=== PATIENT | female | born 1970 | race Two or more races ===

== ENCOUNTER 2017-04-30 20:21 | Emergency (ER) | payer MEDICAID ==
[~2017-04-30] VITALS: Ht 162.6 cm; Wt 60.0 kg
[2017-04-30 21:12] VITALS: BP 100/62
[2017-04-30] MEDS ORDERED: SODIUM CHLORIDE 0.9% 1,000 ML IV ONE (23:05)
[2017-04-30] MEDS ORDERED: ONDANSETRON HCL 4MG/2ML VIAL IV STA (23:05)
[2017-04-30] MEDS ORDERED: MORPHINE SULFATE 4 MG/ML CPJ (NOT FOR IM USE) IV STA (23:05)
== END 2017-04-30 23:55 | disposition left against medical advice (07) ==
LOC: ER 20:27
DX: R10.84 Generalized abdominal pain (principal); R10.32 Left lower quadrant pain; F17.200 Nicotine dependence, unspecified, uncomplicated
CPT/HCPCS: 99284; J7030; Z7610; J2270; J2405